=== PATIENT | male | born 1950 | race Two or more races ===

== ENCOUNTER 2024-06-23 06:58 | Day surgery (SDC) | payer OTHER ==
[2024-06-23] VITALS (7 sets, daily range): BP systolic 112–152; BP diastolic 59–86; PULSE 67–84; RESP 14–20; TEMP 97.6; O2SAT 91–92
[~2024-06-23] VITALS: Ht 185.4 cm; Wt 117.9 kg
[~2024-06-23 06:58] MED LIST: ALLO300T2 PO; AMLO1TAB22 PO; CLON0.1T PO; CLON0.5T3 PO; HYDR25TA5 PO; LOSA-535 PO; METF-370 PO; ROSU20TA14 PO; SPIR25TA PO; TAMS0.4C39 PO; TRAZ1TAB12 PO
[2024-06-23] MEDS ORDERED: IODIXANOL 320MG/ML 100ML BTL IV ONE ×2 (07:48→08:41)
[2024-06-23] MEDS ORDERED: fentaNYL CITRATE 100 MCG/2 ML VL ONE (08:06)
[2024-06-23] MEDS ORDERED: VERAPAMIL 2.5MG/ML INJ 2ML VIAL IV ONE (08:06)
[2024-06-23] MEDS ORDERED: ANGIOMAX 250 MG VIAL IV ONE (08:06)
[2024-06-23] MEDS ORDERED: HEPARIN SODIUM (PORCINE) 5000 UNITS/ML 1ML VIAL ONE (08:06)
[2024-06-23] MEDS ORDERED: SODIUM CHL 0.9% 0 ML ONE (08:07)
[2024-06-23] MEDS ORDERED: MIDAZOLAM HCL 2MG/2ML 2ml VIAL (1mg/ml) ONE (08:07)
[2024-06-23] MEDS ORDERED: LIDOCAINE 2%HCL (LOCAL ANESTH.) INJ 20ML MDV ONE (08:07)
[2024-06-23] MEDS ORDERED: SODIUM CHL 0.9% 50 ML ONE (08:12)
--- NOTE | 2024-06-23 12:43 | DVHOP2 ---
Operative Report Operative Report CARDIAC STUDIO TECHNICIAN VIDEO OPERATOR PROCEDURE REPORT [place], [place] Date of Service: 06/23/24 Tax Clerk: Twan Galvez MD PROCEDURES PERFORMED: Coronary angiogram, left heart catheterization, conscious sedation administration and supervision, less than 15 minutes sedation 15-30 mins ; fluoroscopy use and interpretation. PREOPERATIVE DIAGNOSES: abnormal strss, CAD POSTOP DIAGNOSIS: CAD DESCRIPTION OF PROCEDURE: The patient or appropriate family signed informed consent understanding the risks, benefits and alternatives of the procedure, they wished to proceed. The patient was brought to the cardiac film laboratory technician in [place] state. The patient was prepped in a sterile fashion. Sedation was used per cardiac cath protocol. I administered 2 mL of 2% lidocaine to the right wrist. With an antegrade front wall puncture. I cannulated the right radial artery and placed a 6-[place] slender. Next, an intra-arterial spasmolytic was administered. Next, a - 5 [place] catheter, JL3.5 a nd XB3.5 LAD and were used for coronary angiogram and LVEDP measurement and pressure pullback. At the completion of procedure, all guides and wires were removed, and there were no immediate complications. FINDINGS: RCA: Moderate vessel off the right sinus of Valsalva, there is no severe flow limiting stenosis. its non dominant. 30% proximal stenosis LEFT MAIN: possible dual ostia CIRCUMFLEX: very large dominant e caliber vessel coming off the left main with no flow limiting stenosis. LAD: LAD is a moderate caliber vessel coming of the left side. no severe steno sis noted. LVEDP of 13 mmhg CONCLUSIONS: 1. no severe epicardial CAD 2. Mild CAD noted 3. Normal LVEDP PLAN: Aggressive risk factor modification and medical management for the patient. TWAN GALVEZ MD Jun 23, 2024 12:43
== END 2024-06-23 11:08 | disposition home or self-care (01) ==
LOC: CATH 06:58
PROVIDERS: ATTEND Internal Medicine
DX: R94.39 Abnormal result of other cardiovascular function study (principal); I25.10 Atherosclerotic heart disease of native coronary artery without angina pectoris; I11.0 Hypertensive heart disease with heart failure; I50.30 Unspecified diastolic (congestive) heart failure; E78.00 Pure hypercholesterolemia, unspecified; E11.9 Type 2 diabetes mellitus without complications; R06.02 Shortness of breath; R07.89 Other chest pain; Z79.899 Other long term (current) drug therapy; Z98.890 Other specified postprocedural states; Z79.84 Long term (current) use of oral hypoglycemic drugs; Z79.01 Long term (current) use of anticoagulants
CPT/HCPCS: 93458; C1769; C1887; C1894; J1644; J2250; J3010; J7050; Q9967; 99152; J7060